=== PATIENT | female | born 1950 | race Caucasian/White ===

== ENCOUNTER 2018-03-15 17:15 | Outpatient (REF) | payer MEDICARE, MEDICAID, SELFPAY ==
[2018-03-15 21:22] LABS: Anion Gap 11.1 mmol/L (3-11); BUN 17 mg/dL (7-18); CO2 29.9 mmol/L (21.0-32.0); CREATININE 1.08 mg/dL (0.55-1.02); Calcium 9.7 mg/dL (8.5-10.1); Chloride 103 mmol/L (98-107); Estimated GFR 50.76 (mL/min/1.73m2); Glucose 81 mg/dL (70-100); Sodium 144 mmol/L (136-145)
[2018-03-15 21:27] LABS: Hemoglobin A1C 5.7 % (4.5-6.2)
== END 2018-03-15 17:35 ==
LOC: NCHCN 17:15
PROVIDERS: PCP Nurse Practitioner Family; Visit Provider Nurse Practitioner Family
DX: N28.9 Disorder of kidney and ureter, unspecified (principal); Z13.1 Encounter for screening for diabetes mellitus; Z13.228 Encounter for screening for other metabolic disorders; Z00.00 Encounter for general adult medical examination without abnormal findings
CPT/HCPCS: 80048; 83036

== ENCOUNTER 2019-09-16 18:03 | Outpatient (REF) | payer MEDICARE, MEDICAID, SELFPAY ==
[2019-09-16 20:04] LABS: Anion Gap 6.8 mmol/L (3-11); BUN 19 mg/dL (7-18); CO2 29.2 mmol/L (21.0-32.0); Calcium 9.1 mg/dL (8.5-10.1); Chloride 108 mmol/L (98-107); Estimated GFR 49.54 (mL/min/1.73m2); Glucose 95 mg/dL (74-106); Potassium 4.1 mmol/L (3.5-5.1); Sodium 144 mmol/L (136-145)
[2019-09-16 20:10] LABS: Hemoglobin A1C 5.9 % (3.8-5.6)
== END 2019-09-16 18:23 ==
LOC: NCHCN 18:03
PROVIDERS: PCP Nurse Practitioner Family; Visit Provider Nurse Practitioner Family
DX: R73.03 Prediabetes (principal); N28.9 Disorder of kidney and ureter, unspecified; R06.09 Other forms of dyspnea
CPT/HCPCS: 80048; 83036

== ENCOUNTER 2024-05-22 11:20 | Inpatient (IN) | payer MEDICARE, MEDICAID, SELFPAY ==
[2024-05-22] VITALS (18 sets, daily range): BP systolic 89–125; BP diastolic 32–78; PULSE 78–108; RESP 3–28; TEMP 36–38.4; O2SAT 18–96
--- NOTE | 2024-05-22 11:30 | DI.RAD_ITS ---
Exam(s) XR PORTABLE CHEST AP EXAM: XR PORTABLE CHEST AP CLINICAL HISTORY: Junky cough, fever, hypoxia. TECHNIQUE: 2D digital imaging was performed. COMPARISON: No exams were available for comparison FINDINGS: Single AP portable view. Study limited by body habitus Heart size is upper normal. The mediastinum is not widened. Left lung appears clear. There is probable infiltrate in the medial right lung base. No pleural eff usions. No pulmonary edema. IMPRESSION: As above. Probable right lower lobe infiltrate. Recommend nonportable PA and lateral views when cli nically possible or alternatively CT scan DATA REPOSITORY: RADIATION DOSE DELIVERED:
--- NOTE | 2024-05-22 11:53 | W.ED.GENAD ---
Discharge Plan Disposition Patient Disposition: Admit to [facility] Condition: Stable Discharge Details Chief Complaint: SOB Clinical Impression: Influenza A, RLL pneumonia, Sepsis Primary Care Provider: Ashley Denson ED Provider: Bhavna Tanner Home Meds and New Rx's Prescriptions: No Action pramipexole 0.25 mg tablet 0.25 mg PO DAILY fluoxetine 10 mg capsule 30 mg PO DAILY buspirone 30 mg tablet 30 mg PO BID risperidone [Risperdal] 1 mg tablet 1 mg PO QHS rivastigmine [Exelon Patch] 4.6 mg/24 hour patch 24 hour 4.6 mg transdermal DAILY calcium carbonate-vitamin D3 500 mg-5 mcg (200 unit) tablet 2 tab PO DAILY omega 9-dod-bkm-fish oil [Fish Oil] 300-1,000 mg capsule,delayed release(DR/EC) 1 cap PO DAILY simvastatin 40 mg tablet 40 mg PO DAILY albuterol 90 mcg/actuation aerosol 90 mcg inhalation DIRECTED Rx Instructions: 2 puffs HPI General Mode of arrival: ambulatory. Date/Time Provider Initiated Documentation: 05/22/24 11:35. Limitations to Documentation: no limitations. Information obtained by: patient, family and old records reviewed. HPI Narrative: HPI: This is a 74-year-old female patient with a past medical history significant for cognitive impairment, resides with a care provider, presenting for evaluation of 2 days of fever, cough, and shortness of breath. The patient reports no personal history of asthma or COPD, has a history of PATSY but has not needed to wear her CPAP in some time. She has had a very junky sounding cough and is having difficulty mobilizing her secretions. She has tried humidified air at home. She does not wear oxygen at home environment. She is not experiencing pain, has been able to eat and drink. Exam: Gen: Awake and alert, in no apparent distress HEENT: Non-icteric sclera Neck: Supple Lungs: The patient has diffuse rhonchi throughout lung michel, audible junky cough during this provider's examination. Tachypnea appreciated CV: Appears well perfused, heart with tachycardic rate but regular rhythm, strong distal pulses Abdomen: Non-distended, soft, nontender MSK: Moves 4 extremities without apparent limitation in ROM. No peripheral edema, no unilateral leg swelling or tenderness Skin: Visualized skin without rashes, cyanosis. Neuro: Normal Gait, no obvious focal deficits or facial asymmetry. Speaks in full, clear sentences. Psych: Appropriate for situation. MDM: This is a 74-year-old female patient presenting for evaluation of shortness of breath, cough, and fever. On arrival to our emergency department the patient is noted to be hypoxic to 85%, placed on 2 L of oxygen by nasal cannula to good effect. Tachycardic and tachypneic, my differential includes but is not limited to viral upper respiratory infection, pneumonia, bronchitis, sepsis. Considered metabolic and electrolyte derangement. No wheezing or history of reactive airway disease to suggest exacerbation, no history of heart failure or evidence of fluid overload on physical examination to suggest pulmonary edema or pleural effusion. The patient's history and physical are less concerning for pulmonary embolism and she has no history of thromboembolic disease. Will obtain laboratory studies to include CBC, CMP, magnesium, troponin, BNP, Fluvid, lactate, and blood cultures. I will obtain a portable chest x-ray, and provide the patient with Tylenol for her low-grade fever. ED Course: I independently interpreted the laboratory studies, which show no significant leukocytosis, anemia, or thrombocytopenia. The chemistry panel is without evidence of electrolyte abnormality, kidney dysfunction, or liver injury. Lactate 2.0, troponin and BNP are low, viral testing positive for influenza A. I independently interpreted the patient's chest x-ray, which does show AN opacity in the right lower lobe concerning for pneumonia in this clinical context. Provided the patient was a liter of IV fluids after her blood pressure decreased to 89/52. Provided the patient with ceftriaxone and azithromycin for antibiosis for her pneumonia. Patient remains on 2 L/min of supplemental O2, reached out to the hospitalist who is graciously accepted this patient for admission. I did send for jeffery influenza subtyping, patient has no exposure to known bird flu cases or domestic or wild birds, and I do not feel that this patient warrants contacting the health department at this time. Hospitalist made aware. Given the duration of symptoms (4 days) Tamiflu was not empirically initiated. Transferred to the hospitalist service without incident. Patient remained hemodynamically appropriate while under my care. Bhavna Tanner MD Related Data Home Medications ?Medication ?Instructions ?Recorded ?Confirmed albuterol 90 mcg/actuation aerosol 90 mcg inhalation DIRECTED 05/22/24 05/22/24 inhaler buspirone 30 mg tablet 30 mg PO BID 05/22/24 05/22/24 calcium 500 mg (as 2 tab PO DAILY 05/22/24 05/22/24 carbonate)-vitamin D3 5 mcg (200 unit) tablet fluoxetine 10 mg capsule 30 mg PO DAILY 05/22/24 05/22/24 omega 5-nsm-pvk-fish oil 300 1 cap PO DAILY 05/22/24 05/22/24 mg-1,000 mg capsule,delayed release (Fish Oil) pramipexole 0.25 mg tablet 0.25 mg PO DAILY 05/22/24 05/22/24 risperidone 1 mg tablet (Risperdal) 1 mg PO QHS 05/22/24 05/22/24 rivastigmine 4.6 mg/24 hour 4.6 mg transdermal DAILY 05/22/24 05/22/24 transdermal patch (Exelon Patch) simvastatin 40 mg tablet 40 mg PO DAILY 05/22/24 05/22/24 Allergies Allergy/AdvReac Type Severity Reaction Status Date / Time ethinyl estradiol (From AdvReac Unknown Unknown Verified 05/22/24 11:51 Seasonale (91)) levonorgestrel (From AdvReac Unknown Unknown Verified 05/22/24 11:51 Seasonale (91)) morphine AdvReac Unknown Unknown Verified 05/22/24 11:51 lorazepam AdvReac Unknown Verified 05/22/24 11:51 General Stated Complaint: SOB MATEUSZ: 2 Course Vital Signs Vital signs: Vital Signs Temperature 38.4 C H 05/22/24 11:38 Pulse 108 H 05/22/24 11:38 Respiratory Rate H 05/22/24 11:38 Blood Pressure 104/50 L 05/22/24 11:38 Pulse Oximetry 85 L 05/22/24 11:38 Temperature 38.4 C H 05/22/24 11:38 Temperature Source Temporal Artery Scan 05/22/24 11:38 Pulse 108 H 05/22/24 11:38 Respiratory Rate 26 H 05/22/24 11:38 Blood Pressure 104/50 L 05/22/24 11:38 Pulse Oximetry 85 L 05/22/24 11:38 Oxygen Delivery Method Room Air 05/22/24 11:38 Oxygen Flow Rate 0 05/22/24 11:38 Pain Level 0 05/22/24 11:38 Lab/Test Results Lab/Test Results: 05/22/24 11:45 Blood Blood Culture - Pending 05/22/24 11:45 Blood Blood Culture - Pending Medical Decision Making Quality:SDOH Health Related Social Needs: No Data to Display PFSH All Active Problems (Updated 05/22/24 @ 12:57 by Bhavna Tanner MD) Sepsis (Acute) RLL pneumonia (Acute) Influenza A (Acute) Social History Smoking/Tobacco Use Status: Never Smoking risk assessment performed?: Yes Alcohol Intake: never Substance use type: does not use
[2024-05-22 12:07] LABS: Abs Immature Grans 0.03 10^3/uL (0.0-0.06); Absolute Basophil Count 0.03 10^3/uL (0.0-0.2); Absolute Eosinophil Count 0.05 10^3/uL (0.0-0.7); Absolute Lymphocyte Count 0.88 10^3/uL (1.2-3.4); Absolute Monocyte Count 0.83 10^3/uL (0.1-0.8); Absolute Neutrophil Count 7.59 10^3/uL (1.2-6.7); Basophils % 0.3 %; Eosinophils % 0.5 %; HCT 37.3 % (36.0-46.0); HGB 12.3 g/dL (11.2-15.7); Immature Grans % 0.3 %; Lymphocytes % 9.4 %; MCH 32.5 pg (27.0-33.0); MCV 98 fL (80-95); MPV 10.7 fL (8.0-11.0); Monocytes % 8.8 %; Neutrophils % 80.7 %; Platelet Count 184 10^3/uL (130-400); RBC 3.79 10^6/uL (3.93-5.22); RDW 15.4 % (11.7-14.6); RDW-SD 55.5 fL; WBC 9.41 10^3/uL (4.4-10.8)
[2024-05-22] MEDS: ACETAMINOPHEN 1,000 MG/100 ML BAG 400 MG IVPB (12:30)
[2024-05-22 12:33] LABS: ALT 42 U/L (14-59); AST 28 U/L (15-37); Albumin 3.2 g/dL (3.4-5.0); Alkaline Phosphatase 94 U/L (46-116); Anion Gap 3.8 mmol/L (3-11); BUN 12 mg/dL (7-18); Bilirubin, Total 0.54 mg/dL (0.2-1.0); CO2 32.2 mmol/L (21.0-32.0); CREATININE 1.2 mg/dL (0.55-1.02); Chloride 99 mmol/L (98-107); Estimated GFR 48.09 (mL/min/1.73m2); Glucose 142 mg/dL (74-106); Magnesium 1.8 mg/dL (1.8-2.4); NT-proBNP 19 pg/mL (<300); Potassium 4.1 mmol/L (3.5-5.1); Sodium 135 mmol/L (136-145); Total Protein 7.6 g/dL (6.4-8.2); Troponin I 7 ng/L (<or=51)
[2024-05-22 12:43] LABS: COVID-19 PCR Negative (Negative); Influenza A PCR Positive (Negative); Influenza B PCR Negative (Negative); RSV PCR Negative (Negative)
[2024-05-22] MEDS: AZITHROMYCIN 500 MG in Normal Saline 250 ML 250 MG IVPB (12:45)
[2024-05-22] MEDS: cefTRIAXone 1 GM/50 ML BAG IVPB (12:45)
[2024-05-22] MEDS: Lactated Ringers 1,000 ML 1000 ML IV (12:45)
[2024-05-22 12:51] LABS: Source Nasopharynx
--- NOTE | 2024-05-22 14:06 | W.PC.ACHO ---
Registration Status: Primary Language: Preferred Language: ED Information & Data Chief Complaint SOB 05/22/24 11:57 Other Complaint RespSymp 05/22/24 11:38 Triage Note Pt has had a cough/fever for 05/22/24 11:38 3 days. Reported has had a cough, but trouble getting this up. Lives with service provider, is here with her. Has not received ibuprofen or tylenol. Most Recent Vital Signs Temperature 38.4 C H 05/22/24 11:38 Temperature Source Temporal Artery Scan 05/22/24 11:38 Pulse 97 H 05/22/24 13:30 Respiratory Rate 18 05/22/24 13:06 Respiratory Effort Short of Breath 05/22/24 13:06 Respiratory Depth Normal 05/22/24 13:06 Respiratory Pattern Normal 05/22/24 13:06 Blood Pressure 97/62 L 05/22/24 13:30 Blood Pressure Mean 71 05/22/24 13:30 Pulse Oximetry 92 05/22/24 13:01 Oxygen Delivery Method Room Air 05/22/24 11:38 Oxygen Flow Rate 0 05/22/24 11:38 Pain Level 0 05/22/24 11:38 Allergies ethinyl estradiol (From ()) Adverse Reaction (Unknown, Verified 05/22/24 11:51) Unknown levonorgestrel (From ()) Adverse Reaction (Unknown, Verified 05/22/24 11:51) Unknown morphine Adverse Reaction (Unknown, Verified 05/22/24 11:51) Unknown lorazepam Adverse Reaction (Verified 05/22/24 11:51) Unknown Precautions Isolation Droplet precaution 05/22/24 11:43 IV IV Catheter Type [Left Saline Lock Antecubital] IV Catheter Type [Right Peripheral IV Antecubital] IV Catheter Gauge [Left 18 Antecubital] IV Catheter Gauge [Right 18 Antecubital] Diagnostics 05/22/24 05/22/24 05/22/24 Range/Units 14:42 12:42 12:06 WBC (4.4-10.8) 10^3/uL RBC (3.93-5.22) 10^6/uL Hgb (11.2-15.7) g/dL Hct (36.0-46.0) % MCV (80-95) fL MCH (27.0-33.0) pg MCHC (32.0-36.0) % RDW (11.7-14.6) % Plt Count (130-400) 10^3/uL MPV (8.0-11.0) fL Immature Gran % % Neutrophils % % Lymphocytes % % Monocytes % % Eosinophils % % Basophils % % Nucleated RBC % (0.0-0.3) % Absolute Neutrophils (1.2-6.7) 10^3/uL Absolute Lymphocytes (1.2-3.4) 10^3/uL Absolute Monocytes (0.1-0.8) 10^3/uL Absolute Eosinophils (0.0-0.7) 10^3/uL Absolute Basophils (0.0-0.2) 10^3/uL VBG Lactate (<or=2.0) mmol/L Sodium (136-145) mmol/L Potassium (3.5-5.1) mmol/L Chloride (98-107) mmol/L Carbon Dioxide (21.0-32.0) mmol/L Anion Gap (3-11) mmol/L BUN (7-18) mg/dL Creatinine (0.55-1.02) mg/dL Est GFR (CKD-EPI 2020) (mL/min/1.73m2) Glucose (74-106) mg/dL Calcium (8.5-10.1) mg/dL Magnesium (1.8-2.4) mg/dL Total Bilirubin (0.2-1.0) mg/dL AST (15-37) U/L ALT (14-59) U/L Alkaline Phosphatase (46-116) U/L Troponin I Cancelled Cancelled (<or=51) ng/L NT-Pro-B Natriuret Pep (<300) pg/mL Total Protein (6.4-8.2) g/dL Albumin (3.4-5.0) g/dL COVID-19 Source SARS-CoV-2 (PCR) (Negative) Influ A Subtyping (PCR) Pending Influenza Type A (PCR) (Negative) Influenza Type B (PCR) (Negative) RSV (PCR) (Negative) 05/22/24 05/22/24 Range/Units 11:55 11:45 WBC 9.41 (4.4-10.8) 10^3/uL RBC 3.79 L (3.93-5.22) 10^6/uL Hgb 12.3 (11.2-15.7) g/dL Hct 37.3 (36.0-46.0) % MCV 98 H (80-95) fL MCH 32.5 (27.0-33.0) pg MCHC 33.0 (32.0-36.0) % RDW 15.4 H (11.7-14.6) % Plt Count 184 (130-400) 10^3/uL MPV 10.7 (8.0-11.0) fL Immature Gran % 0.3 % Neutrophils % 80.7 % Lymphocytes % 9.4 % Monocytes % 8.8 % Eosinophils % 0.5 % Basophils % 0.3 % Nucleated RBC % 0.0 (0.0-0.3) % Absolute Neutrophils 7.59 H (1.2-6.7) 10^3/uL Absolute Lymphocytes 0.88 L (1.2-3.4) 10^3/uL Absolute Monocytes 0.83 H (0.1-0.8) 10^3/uL Absolute Eosinophils 0.05 (0.0-0.7) 10^3/uL Absolute Basophils 0.03 (0.0-0.2) 10^3/uL VBG Lactate 2.0 (<or=2.0) mmol/L Sodium 135 L (136-145) mmol/L Potassium 4.1 (3.5-5.1) mmol/L Chloride 99 (98-107) mmol/L Carbon Dioxide 32.2 H (21.0-32.0) mmol/L Anion Gap 3.8 (3-11) mmol/L BUN 12 (7-18) mg/dL Creatinine 1.2 H (0.55-1.02) mg/dL Est GFR (CKD-EPI 2020) 48.09 (mL/min/1.73m2) Glucose 142 H (74-106) mg/dL Calcium 9.0 (8.5-10.1) mg/dL Magnesium 1.8 (1.8-2.4) mg/dL Total Bilirubin 0.54 (0.2-1.0) mg/dL AST 28 (15-37) U/L ALT 42 (14-59) U/L Alkaline Phosphatase 94 (46-116) U/L Troponin I 7 (<or=51) ng/L NT-Pro-B Natriuret Pep 19 (<300) pg/mL Total Protein 7.6 (6.4-8.2) g/dL Albumin 3.2 L (3.4-5.0) g/dL COVID-19 Source Nasopharynx SARS-CoV-2 (PCR) Negative (Negative) Influ A Subtyping (PCR) Influenza Type A (PCR) Positive A (Negative) Influenza Type B (PCR) Negative (Negative) RSV (PCR) Negative (Negative) 05/22/24 12:09 Blood Culture - Pending Blood 05/22/24 11:55 Blood Culture - Pending Blood Intake and Output - 24 Hour Total 05/22/24 11:20 thru 05/22/24 13:55 Intake Total 420 Balance 420 Weight 72.575 kg Intake: IV 420 Falls Risk Assessment History of Falls No History 05/22/24 13:06 Fall Total Score 0 05/22/24 13:06 Level of Risk Standard/Low Risk 05/22/24 13:06 v v v v v v v v v Sending and/or Receiving Nurses: Please use comment section below to note any information pertinent to the patient hand-off not included above. Information / Comments: Report received from: Scarlett JOHN
--- NOTE | 2024-05-22 17:11 | HPE_ITS ---
Date of service: 05/22/24 Time of Service: 17:11 Assessment and Plan Assessment and plan (1) RLL pneumonia: Status: Acute Assessment and plan: Rhonchorous cough new oxygen requirement, wean as able Nebs Azithromycin and ceftriaxone IS Acapella BC pending Guaifenesin Benzonatate RT consult (2) Influenza A: Status: Acute Assessment and plan: 4d symptoms no tamiflu History of Present Illness History of Present Illness Chief Complaint: Cough, fever, shortness of breath. Narrative: This is a [age]falk[age]-old female patient with a significant past medical history of cognitive impairment. She resides with a care provider. The patient presents for evaluation following two days of fever, cough, and shortness of breath. She reports that she does not have a personal history of asthma or chronic obstructive pulmonary disease. Although she has a history of obstructive sleep apnea, she has not used her continuous positive airway pressure machine in quite some time. The patient describes her cough as very junky sounding and indicates that she is having difficulty mobilizing her secretions. In an effort to alleviate her symptoms, she has tried using humidified air at home. She does not use oxygen in her home environment. She reports that she is not experiencing any pain and has been able to eat and drink without difficulty. Labs in the ED: WBC 9.41 Hgb 12.3 sodium 135 potassium 4.1 creatinine 1.2 glucose 142 BC pending lactate 2.0 Flu positive Covid negative Chest xray- as read by the radiologist left lung clear, probable right lower lobe infiltrate. Vital signs HR 90s, RR 18 SPO2 92% 2 LPM oxygen nasal cannula (no prior oxygen requirement) BP 100/60 T 38.4 In the ED, received acetaminophen for fever, ceftriaxone and azithromycin IV. Patient was not started on tamiflu having symptoms for four days. Patient is admitted to the medical floor for further testing and treatment. Patient is a full code. Review of Systems All systems reviewed & are unremarkable except as noted in HPI and below PFSH All Active Problems (Updated 05/22/24 @ 12:57 by Bhavna Tanner MD) Sepsis (Acute) RLL pneumonia (Acute) Influenza A (Acute) Social History Smoking/Tobacco Use Status: Never Smoking risk assessment performed?: Yes Alcohol Intake: never Substance use type: does not use Housing: house Meds Allergies and Home Medications Allergies Allergy/AdvReac Type Severity Reaction Status Date / Time ethinyl estradiol (From AdvReac Unknown Unknown Verified 05/22/24 11:51 Seasonale (91)) levonorgestrel (From AdvReac Unknown Unknown Verified 05/22/24 11:51 Seasonale (91)) morphine AdvReac Unknown Unknown Verified 05/22/24 11:51 lorazepam AdvReac Unknown Verified 05/22/24 11:51 Home Medications ?Medication ?Instructions ?Recorded ?Confirmed ?Type albuterol 90 mcg/actuation aerosol 90 mcg inhalation DIRECTED 05/22/24 05/22/24 History inhaler buspirone 30 mg tablet 30 mg PO BID 05/22/24 05/22/24 History calcium 500 mg (as 2 tab PO DAILY 05/22/24 05/22/24 History carbonate)-vitamin D3 5 mcg (200 unit) tablet fluoxetine 10 mg capsule 30 mg PO DAILY 05/22/24 05/22/24 History omega 9-mpa-hpl-fish oil 300 1 cap PO DAILY 05/22/24 05/22/24 History mg-1,000 mg capsule,delayed release (Fish Oil) pramipexole 0.25 mg tablet 0.25 mg PO DAILY 05/22/24 05/22/24 History risperidone 1 mg tablet (Risperdal) 1 mg PO QHS 05/22/24 05/22/24 History rivastigmine 4.6 mg/24 hour 4.6 mg transdermal QPM 05/22/24 05/22/24 History transdermal patch (Exelon Patch) simvastatin 40 mg tablet 40 mg PO DAILY 05/22/24 05/22/24 History Exam Narrative Exam Narrative: Gen: Awake and alert, in no apparent distress HEENT: Non-icteric sclera Neck: Supple Lungs: The patient has diffuse rhonchi throughout lung michel, tachypnea CV: Appears well perfused, heart with tachycardic rate but regular rhythm, strong distal pulses Abdomen: Non-distended, soft, nontender MSK: Moves 4 extremities without apparent limitation in ROM. No peripheral edema, no unilateral leg swelling or tenderness Skin: Visualized skin without rashes, cyanosis. Neuro: Normal Gait, no obvious focal deficits or facial asymmetry. Speaks in full, clear sentences. Psych: Appropriate for situation. Results Labs 05/22/24 11:55 05/22/24 11:55 Labs: Laboratory Results - last 24 hr 05/22/24 05/22/24 05/22/24 11:45 11:55 12:42 WBC 9.41 RBC 3.79 L Hgb 12.3 Hct 37.3 MCV 98 H MCH 32.5 MCHC 33.0 RDW 15.4 H Plt Count 184 MPV 10.7 Immature Gran % 0.3 Neutrophils % 80.7 Lymphocytes % 9.4 Monocytes % 8.8 Eosinophils % 0.5 Basophils % 0.3 Nucleated RBC % 0.0 Absolute Neutrophils 7.59 H Absolute Lymphocytes 0.88 L Absolute Monocytes 0.83 H Absolute Eosinophils 0.05 Absolute Basophils 0.03 VBG Lactate 2.0 Sodium 135 L Potassium 4.1 Chloride 99 Carbon Dioxide 32.2 H Anion Gap 3.8 BUN 12 Creatinine 1.2 H Est GFR (CKD-EPI 2020) 48.09 Glucose 142 H Calcium 9.0 Magnesium 1.8 Total Bilirubin 0.54 AST 28 ALT 42 Alkaline Phosphatase 94 Troponin I 7 Cancelled NT-Pro-B Natriuret Pep 19 Total Protein 7.6 Albumin 3.2 L COVID-19 Source Nasopharynx SARS-CoV-2 (PCR) Negative Influenza Type A (PCR) Positive A Influenza Type B (PCR) Negative RSV (PCR) Negative 05/22/24 14:42 WBC RBC Hgb Hct MCV MCH MCHC RDW Plt Count MPV Immature Gran % Neutrophils % Lymphocytes % Monocytes % Eosinophils % Basophils % Nucleated RBC % Absolute Neutrophils Absolute Lymphocytes Absolute Monocytes Absolute Eosinophils Absolute Basophils VBG Lactate Sodium Potassium Chloride Carbon Dioxide Anion Gap BUN Creatinine Est GFR (CKD-EPI 2020) Glucose Calcium Magnesium Total Bilirubin AST ALT Alkaline Phosphatase Troponin I Cancelled NT-Pro-B Natriuret Pep Total Protein Albumin COVID-19 Source SARS-CoV-2 (PCR) Influenza Type A (PCR) Influenza Type B (PCR) RSV (PCR) Last Vital Signs Temp 37 C 05/22/24 14:32 Pulse 86 05/22/24 14:32 Resp 20 05/22/24 14:32 BP 103/66 05/22/24 14:32 Pulse Ox 85 L 05/22/24 15:35 Time Spent Time spent with Patient: 40-54 minutes Time was spent: preparing to see the patient(eg.review tests), obtaining and/or reviewing separately otained hiistory, ordering medications,tests, procedures, referring, communicating with other health critical care specialist, indepentently interpreting results, counseling the patient and care coordination
[2024-05-22] MEDS: Albuterol/Ipratropium 3 ML UPD VIAL UPD ×2 (18:15→21:52)
[2024-05-22] MEDS: Normal Saline 1,000 ML 100 ML IV (18:27)
[2024-05-22 19:03] LABS: Procalcitonin < 0.10 ng/mL
[2024-05-22 19:29] LABS: Lab Add On Test DONE
[2024-05-22] MEDS: Normal Saline Flush 10 ML SYR IVP (20:41)
[2024-05-22] MEDS: guaiFENesin 600 MG TABCR PO (20:42)
[2024-05-22] MEDS: Enoxaparin 40 MG/0.4 ML SYR SC (20:42)
[2024-05-22] MEDS: Simvastatin 40 MG TAB PO (20:42)
[2024-05-22] MEDS: busPIRone 15 MG TAB 30 MG PO (20:42)
[2024-05-22] MEDS: risperiDONE 1 MG TAB PO (20:42)
[2024-05-23] VITALS (12 sets, daily range): BP systolic 103–136; BP diastolic 60–85; PULSE 83–98; RESP 3–22; TEMP 36.2–37.2; O2SAT 90–96
[2024-05-23] MEDS: Albuterol/Ipratropium 3 ML UPD VIAL UPD ×3 (03:50→22:37)
[2024-05-23 06:32] LABS: Abs Immature Grans 0.03 10^3/uL (0.0-0.06); Absolute Basophil Count 0.03 10^3/uL (0.0-0.2); Absolute Eosinophil Count 0.19 10^3/uL (0.0-0.7); Absolute Lymphocyte Count 1.45 10^3/uL (1.2-3.4); Absolute Neutrophil Count 5.06 10^3/uL (1.2-6.7); Basophils % 0.4 %; Eosinophils % 2.6 %; HCT 30.8 % (36.0-46.0); HGB 10.1 g/dL (11.2-15.7); Immature Grans % 0.4 %; Lymphocytes % 19.7 %; MCH 32.4 pg (27.0-33.0); MCHC 32.8 % (32.0-36.0); MCV 99 fL (80-95); MPV 11.1 fL (8.0-11.0); Monocytes % 8.2 %; Neutrophils % 68.7 %; Platelet Count 155 10^3/uL (130-400); RBC 3.12 10^6/uL (3.93-5.22); RDW 15.3 % (11.7-14.6); RDW-SD 55.4 fL; WBC 7.36 10^3/uL (4.4-10.8)
[2024-05-23 06:59] LABS: Anion Gap 3.9 mmol/L (3-11); BUN 8 mg/dL (7-18); CO2 30.1 mmol/L (21.0-32.0); Calcium 8.4 mg/dL (8.5-10.1); Chloride 107 mmol/L (98-107); Estimated GFR 59.86 (mL/min/1.73m2); Glucose 114 mg/dL (74-106); Magnesium 1.9 mg/dL (1.8-2.4); Potassium 3.9 mmol/L (3.5-5.1); Sodium 141 mmol/L (136-145)
--- NOTE | 2024-05-23 08:51 | INITIAL_ITS ---
Date of service: 05/23/24 Time of Service: 08:51 Care Management Initial Assmt Initial Assessment Reason for Hospitalization: Influenza A, pneumonia, Sepsis Functional Status/Living Situation Patient Presentation: Katty was lying in bed when CM met with her. She is wearing supplemental O2, which is not her baseline. Katty is a client if [facility] and is accompanied by her shared living provider Bhavani, and is talkative and reports that she is feeling better than when she first came in. CM provided pt with some of her favorite things, an adult coloring book and a journal. Town of Residence: [facility] Resides with: Other ([employer]PER[employer] Bhavani Spivey) Caregiver/Guardian: Guardian Margoth Bustillo Employment Status: Retired Instrumental Activities of Daily Living (ADLs): Independent Medications Medication Management: No Issues/Barriers identified Physical Functioning/Mobility Assistive Device: Walker Advance Directives Advance Directives: Do you have an Advance Directive: AD On File at [facility]: N 09/03/12 20:27 Date Asked 05/22/24 05/22/24 12:18 AD Date Reviewed COLST On File at [facility] COLST Date Scanned Code Status Resuscitation Status Full Code Portal Pt does not currently have a portal and education provided: Yes Insurance Coverage/Financial Issues Insurance: Medicaid Medicare Care Team Visit Care Team Role Provider Type Kenya So APRN MD [facility] STAFF PHYSICIAN Ashley Denson Primary Care Provider NON-[facility] STAFF PHYSICIAN Bhavna Tanner MD Emergency Provider [facility] STAFF PHYSICIAN Anil West MD Admit Provider [facility] STAFF PHYSICIAN Attending Provider Discharge Potential Discharge Needs: PCP F/U Appt Anticipated Barriers to Discharge: None Identified Patient/Family Education Needs: Review discharge instructions, discuss Ask Me Three Transportation: Private vehicle Plan: Anticipate, Katty will discharge home via private vehicle with her home provider Bhavani. Her Guardian is Anay Bustillo and she should also be notified on discharge. Pt will follow up with her PCP and discharge plan of care as directed. CM will follow. Social Determinants of Health Screening Social Determinants of Health last assessed: 05/23/24 Will the Patient Participate in the Screening?: Declined to provide Do you worry about having a steady place to live?: no Problems where you live: no known problems In the past 12 months, have you had to go without electric, gas, oil or water in your home?: no Have you or anyone in your house had to go without enough food to eat?: no Has lack of transportation kept you from medical appointments or from doing thi ngs needed for daily living?: no Has anyone in your life made you feel unsafe or unsupported?: no How hard is it for you to pay for the very basics like food, housing, medical care, and heating? Would you say it is:: Not hard at all Do you want help finding or keeping work or a job?: I do not need or want help If for any reason you need help with day-to-day activities such as bathing, preparing meals, shopping, managing finances, etc., do you get the help you need?: I don?t need any help How often do you feel lonely or isolated from those around you?: Never Do you speak a language other than Icelandic at home?: No Does the patient want assistance with any of the above?: No PFSH All Active Problems (Updated 05/23/24 @ 16:21 by Kenya So APRN) Depression (Chronic) On deep vein thrombosis (DVT) prophylaxis (Acute) Sepsis (Acute) RLL pneumonia (Acute) Influenza A (Acute) Social History Smoking/Tobacco Use Status: Never Smoking risk assessment performed?: Yes Alcohol Intake: never Substance use type: does not use Housing: house
--- NOTE | 2024-05-23 09:51 | PGE_ITS ---
Date of Service Date of service: 05/23/24 Time of Service: 09:52 Assessment and Plan Assessment and plan (1) RLL pneumonia: Status: Acute Assessment and plan: Rhonchorous cough new oxygen requirement, wean as able Continue nebs treatments Continue Azithromycin and ceftriaxone Continue IS, Acapella Blood cultures are negative x 24 hours but patient is still requiring 1.5 L of oxygen by nasal cannula Continue guaifenesin , Benzonatate Ongoing RT consult Legionella and strep pneumoniae detection pending (2) Influenza A: Status: Acute Assessment and plan: The patient's symptoms started 4 days ago at this time the patient is not a candidate for oseltamivir therapy (3) Depression: Status: Chronic Assessment and plan: Continue home medicine regimen (4) On deep vein thrombosis (DVT) prophylaxis: Status: Acute Assessment and plan: On low molecular weight heparin Discussed with Dr. West Subjective Subjective Patient reports: no new complaints, feels better, tolerating liquids well, voiding w/o difficulty and shortness of breath (imrpoving ); denies diarrhea, nausea, vomiting or fever Exam Narrative Exam Narrative: Alert and oriented x 3, pleasant without acute distress, nonfocal, S1-S2 regular, right upper lung is coarse, diminished bases bilaterally, abdomen nondistended soft nontender, moves all 4 extremities Objective Last Vital Signs Temp 37.2 C 05/23/24 08:39 Pulse 98 H 05/23/24 08:39 Resp 15 05/23/24 08:39 BP 133/76 05/23/24 08:39 Pulse Ox 91 L 05/23/24 08:39 Laboratory Results - last 24 hr 05/22/24 05/22/24 05/22/24 11:45 11:55 12:42 WBC 9.41 RBC 3.79 L Hgb 12.3 Hct 37.3 MCV 98 H MCH 32.5 MCHC 33.0 RDW 15.4 H Plt Count 184 MPV 10.7 Immature Gran % 0.3 Neutrophils % 80.7 Lymphocytes % 9.4 Monocytes % 8.8 Eosinophils % 0.5 Basophils % 0.3 Nucleated RBC % 0.0 Absolute Neutrophils 7.59 H Absolute Lymphocytes 0.88 L Absolute Monocytes 0.83 H Absolute Eosinophils 0.05 Absolute Basophils 0.03 VBG Lactate 2.0 Sodium 135 L Potassium 4.1 Chloride 99 Carbon Dioxide 32.2 H Anion Gap 3.8 BUN 12 Creatinine 1.2 H Est GFR (CKD-EPI 2020) 48.09 Glucose 142 H Calcium 9.0 Magnesium 1.8 Total Bilirubin 0.54 AST 28 ALT 42 Alkaline Phosphatase 94 Troponin I 7 Cancelled NT-Pro-B Natriuret Pep 19 Total Protein 7.6 Albumin 3.2 L Procalcitonin < 0.10 COVID-19 Source Nasopharynx SARS-CoV-2 (PCR) Negative Influenza Type A (PCR) Positive A Influenza Type B (PCR) Negative RSV (PCR) Negative Add-On Test Request DONE 05/22/24 05/23/24 14:42 05:48 WBC 7.36 RBC 3.12 L Hgb 10.1 L D Hct 30.8 L MCV 99 H MCH 32.4 MCHC 32.8 RDW 15.3 H Plt Count 155 MPV 11.1 H Immature Gran % 0.4 Neutrophils % 68.7 Lymphocytes % 19.7 Monocytes % 8.2 Eosinophils % 2.6 Basophils % 0.4 Nucleated RBC % 0.0 Absolute Neutrophils 5.06 Absolute Lymphocytes 1.45 Absolute Monocytes 0.60 Absolute Eosinophils 0.19 Absolute Basophils 0.03 VBG Lactate Sodium 141 Potassium 3.9 Chloride 107 Carbon Dioxide 30.1 Anion Gap 3.9 BUN 8 Creatinine 1.0 Est GFR (CKD-EPI 2020) 59.86 Glucose 114 H Calcium 8.4 L Magnesium 1.9 Total Bilirubin AST ALT Alkaline Phosphatase Troponin I Cancelled NT-Pro-B Natriuret Pep Total Protein Albumin Procalcitonin COVID-19 Source SARS-CoV-2 (PCR) Influenza Type A (PCR) Influenza Type B (PCR) RSV (PCR) Add-On Test Request Time Spent with Patient Time Spent with Patient: >50 minutes Time was spent: preparing to see the patient(eg.review tests), obtaining and/or reviewing separately otained hiistory, ordering medications,tests, procedures, referring, communicating with other health healthcare customer service, indepentently interpreting results, counseling the patient and care coordination
[2024-05-23] MEDS: busPIRone 15 MG TAB 30 MG PO ×2 (09:54→20:43)
[2024-05-23] MEDS: Pramipexole 0.25 MG TAB PO (09:55)
[2024-05-23] MEDS: Calcium 600mg/Vit D 200U TAB 2 TAB PO (09:55)
[2024-05-23] MEDS: Omega-3 Fatty Acids 1000 MG CAP PO (09:55)
[2024-05-23] MEDS: guaiFENesin 600 MG TABCR PO ×2 (09:55→20:46)
[2024-05-23] MEDS: FLUoxetine 10 MG TAB 30 MG PO (09:56)
[2024-05-23] MEDS: Normal Saline Flush 10 ML SYR IVP ×2 (13:03→20:45)
[2024-05-23] MEDS: AZITHROMYCIN 500 MG in Normal Saline 250 ML 250 MG IVPB (13:03)
[2024-05-23] MEDS: cefTRIAXone 1 GM/50 ML BAG IVPB (13:03)
--- NOTE | 2024-05-23 14:18 | PHA.REVIEW2 ---
Pharmacy Admission Review Admission Clinical Review Admission Pharmacy Review: RLL pneumonia (Acute) Influenza A (Acute) ethinyl estradiol (From ()) Adverse Reaction (Unknown, Verified 05/22/24 11:51) Unknown levonorgestrel (From ()) Adverse Reaction (Unknown, Verified 05/22/24 11:51) Unknown morphine Adverse Reaction (Unknown, Verified 05/22/24 11:51) Unknown lorazepam Adverse Reaction (Verified 05/22/24 11:51) Unknown Resuscitation Status Full Code Height 4 ft 9 in Weight 72.575 kg Comments Comments/Follow Ups: Watch VS, SCr, labs, for culture results and for med changes (possible renal dose adjustements). Pharmacy Admission Review Renal Dosing Renal Dosing: BUN 8 mg/dL (7-18) 05/23/24 05:48 Creatinine 1.0 mg/dL (0.55-1.02) 05/23/24 05:48 Medications needing adjustments: Reviewed (Crcl ~40 mL/min current meds are okay ) Anticoagulation Anticoagulation: Hgb 10.1 g/dL (11.2-15.7) L D 05/23/24 05:48 Hct 30.8 % (36.0-46.0) L 05/23/24 05:48 Plt Count 155 10^3/uL (130-400) 05/23/24 05:48 Creatinine 1.0 mg/dL (0.55-1.02) 05/23/24 05:48 DVT Prophylaxis: Reviewed Medications: Enoxaparin Opiate Usage Evaluate Pain Scale/Pains Meds: N/A Relevant Labs Relevant Labs: Sodium 141 mmol/L (136-145) 05/23/24 05:48 Potassium 3.9 mmol/L (3.5-5.1) 05/23/24 05:48 Chloride 107 mmol/L (98-107) 05/23/24 05:48 Magnesium 1.9 mg/dL (1.8-2.4) 05/23/24 05:48 Electrolytes, C-Reactive P, ESR: Reviewed DM Control DM Control: Glucose 114 mg/dL (74-106) H 05/23/24 05:48 DM Control: Reviewed (No DM noted in medical history, previous A1c from 2019) Cardiac Review Cardiac Review: Troponin I Cancelled 05/22/24 14:42 NT-Pro-B Natriuret Pep 19 pg/mL (<300) 05/22/24 11:55 BP, HR, EF%: Reviewed QTc Review QTc: N/A IV to PO Switch IV Medications: Reviewed Home Meds Home Med List reviewed: Reviewed Relevent Home Meds Not ordered & why?: All home meds are currently ordered Current Meds Current Medication Order Review: Intervened (Discontinued duplicate med order) Pharmacy Antibiotic Review Relevant Labs: Relevant Labs 05/22/24 11:55 Procalcitonin < 0.10 Pharmacy Antibiotic Activity: C/S review and Reviewed, no change Comments: Blood cultures no growth @24 hours. Ceftriaxone and azithromycin continue for pneumonia (day 2). Comments Comments/Follow Ups: Watch VS, SCr, labs, for culture results and for med changes (possible renal dose adjustements).
[2024-05-23] MEDS: Normal Saline 1,000 ML 100 ML IV (17:07)
[2024-05-23] MEDS: Enoxaparin 40 MG/0.4 ML SYR SC (20:42)
[2024-05-23] MEDS: risperiDONE 1 MG TAB PO (20:43)
[2024-05-23] MEDS: Simvastatin 40 MG TAB PO (20:44)
[2024-05-23 23:25] LABS: Legionella Ag Detection Urine Negative (Negative)
[2024-05-24] VITALS (7 sets, daily range): BP systolic 108–125; BP diastolic 69–86; PULSE 74–92; RESP 8–16; TEMP 36–36.2; O2SAT 92–96
[2024-05-24] MEDS: Normal Saline 1,000 ML 100 ML IV (03:24)
[2024-05-24 06:30] LABS: Abs Immature Grans 0.06 10^3/uL (0.0-0.06); HCT 33.1 % (36.0-46.0); HGB 10.6 g/dL (11.2-15.7); MCH 32.1 pg (27.0-33.0); MCV 100 fL (80-95); Platelet Count 170 10^3/uL (130-400); RDW 15.7 % (11.7-14.6); RDW-SD 57.4 fL; WBC 7.29 10^3/uL (4.4-10.8)
[2024-05-24 06:43] LABS: Anion Gap 3.1 mmol/L (3-11); BUN 6 mg/dL (7-18); CO2 31.9 mmol/L (21.0-32.0); CREATININE 0.8 mg/dL (0.55-1.02); Chloride 108 mmol/L (98-107); Estimated GFR 78.24 (mL/min/1.73m2); Glucose 99 mg/dL (74-106); Sodium 143 mmol/L (136-145)
[2024-05-24 06:58] LABS: Absolute Eosinophil Count 0.36 10^3/uL (0.0-0.7); Absolute Lymphocyte Count 1.97 10^3/uL (1.2-3.4); Absolute Monocyte Count 0.51 10^3/uL (0.1-0.8); Absolute Neutrophil Count 4.37 10^3/uL (1.2-6.7); Atypical Lymphocytes % 2 %; Metamyelocytes % 1
[2024-05-24 06:59] LABS: Diff Comment Manual Differential; RBC Morphology Normal
[2024-05-24] MEDS: Normal Saline Flush 10 ML SYR IVP ×2 (08:06→12:09)
[2024-05-24] MEDS: Calcium 600mg/Vit D 200U TAB 2 TAB PO (08:07)
[2024-05-24] MEDS: Pramipexole 0.25 MG TAB PO (08:07)
[2024-05-24] MEDS: busPIRone 15 MG TAB 30 MG PO (08:07)
[2024-05-24] MEDS: guaiFENesin 600 MG TABCR PO (08:07)
[2024-05-24] MEDS: FLUoxetine 10 MG TAB 30 MG PO (08:07)
[2024-05-24] MEDS: Omega-3 Fatty Acids 1000 MG CAP PO (08:07)
[2024-05-24] MEDS: Albuterol/Ipratropium 3 ML UPD VIAL UPD (09:30)
--- NOTE | 2024-05-24 10:39 | DSE_ITS ---
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 Symptoms started 4 days prior to presentation. On arrival to the ED the patient was hypoxic at 85% on room air which resolved status post oxygen supplementation of 2 L via nasal cannula. The patient is not O2 dependent at home. The patient was found to be tachycardic, tachypneic febrile and hypotensive. Workup in the ED was significant for the absence of leukocytosis, creatinine at 1.2 from baseline 0.8-1.1, upper respiratory viral panel was positive for influenza A. Chest x-ray showed right lung base infiltrate without pleural effusion. In the ED, IV fluid, ceftriaxone IV and azithromycin IV were initiated. The patient continued to require oxygen supplementation and was admitted to the hospitalist service to the medical surgical floor for evaluation and management of currently severe sepsis due to community acquired pneumonia in the setting of positive influenza A infection, hypoxic respiratory failure, increased creatinine. During the stay the patient continued to receive antibiotics, IV fluid hydration with improvement of the creatinine. The patient received continue to receive nebulizer treatments and oxygen was weaned down to room air for saturation 91- 93%; saturation improved to 95% when patient practicing Acapella and incentive parameter, taking deep breath and coughing. No treatment for influenza was given due to to symptomatology starting 4 days prior to diagnosis. The patient will be discharged home with home health physical therapy as per inpatient physical therapy recommendations. The patient will be discharged home with home health physical therapy to finish her course of antibiotic, probiotics as well as Mucinex and benzonatate. An attempt was made to reach out to the guardian name Margoth Bustillo; but record of a guardian name Brooks Carver at phone #[phone] listed on the person to notify in electronic chart; no response obtained during phone call/phone not in service. Call made to Nicolette Santiago as next of kin at [phone] extension [phone] which is [facility] services number and voicemail left. Under the HIPAA form filled during this admission the guardian was not listed. At the time made to reach her guardian were unsuccessful. The patient will need follow-up with the primary care practitioner with follow- up on sleep study referral for PATSY; it seems that the last study was made in 2017. Home Meds and New Rx's Prescriptions: New benzonatate 100 mg Capsule 100 mg PO TID PRN PRN (Reason: Cough) Qty: 90 0RF guaifenesin [Mucus Relief ER] 600 mg Tablet Extended Release 12hr 600 mg PO BID Qty: 60 0RF cefpodoxime 200 mg tablet 200 mg PO BID Qty: 6 0RF Rx Instructions: must administer with a meal/food Bio-K plus 50 billion cell capsule,delayed release(DR/EC) 1 cap PO DAILY Qty: 7 0RF Rx Instructions: Take 3 hours apart from antibiotics azithromycin 500 mg tablet See Rx Instructions .ROUTE .COMPLEX Qty: 3 0RF Rx Instructions: For 500 mg dose pack: take 500 mg once daily for 3 days Continued pramipexole 0.25 mg tablet 0.25 mg PO DAILY fluoxetine 10 mg capsule 30 mg PO DAILY buspirone 30 mg tablet 30 mg PO BID risperidone [Risperdal] 1 mg tablet 1 mg PO QHS rivastigmine [Exelon Patch] 4.6 mg/24 hour patch 24 hour 4.6 mg transdermal QPM calcium carbonate-vitamin D3 500 mg-5 mcg (200 unit) tablet 2 tab PO DAILY omega 3-xqz-hcf-fish oil [Fish Oil] 300-1,000 mg capsule,delayed release(DR/EC) 1 cap PO DAILY simvastatin 40 mg tablet 40 mg PO DAILY albuterol 90 mcg/actuation aerosol 90 mcg inhalation DIRECTED Rx Instructions: 2 puffs Discharge Instructions Instructions: Flu in adults - Discharge instructions Stand Alone Forms: Nursing Discharge Form Referrals: Ashley Denson [Primary Care Provider] - (Please call PCP office on Sunday to make a follow up appointment.) SLEEP CLINIC,[facility] [OTHER] - (Hx of PATSY, not on CPAP currently) Activity:: Activity as Tolerated Equipment/Supplies:: Walker Diet:: As Tolerated DS: Summary Time Spent with Patient providing and/or coordinating discharge services: Greater than 30 minutes Status at Discharge Functional status at discharge: uses cane/walker Overall status at discharge: patient is progressing back to baseline Mental Status: mental status grossly normal Speech and Movement: speech and movement normal Mood: congruent mood Affect: normal affect Quality:SDOH Health Related Social Needs: No Data to Display Exam Narrative Exam Narrative: Alert and oriented x 3, pleasant without acute distress, nonfocal, S1-S2 regular, right upper lung is coarse, diminished right base, abdomen nondistended soft nontender, moves all 4 extremities Psych Mental Status: mental status grossly normal Speech and Movement: speech and movement normal Mood: congruent mood Affect: normal affect DS: Data Vitals/I&O Vitals and I&O: Vital Signs Temperature 36.1 C L 05/24/24 08:21 Temperature Source Temporal Artery Scan 05/24/24 08:21 Pulse 86 05/24/24 09:36 Respiratory Rate 16 05/24/24 08:21 Respiratory Effort Short of Breath 05/22/24 13:06 Respiratory Depth Normal 05/22/24 13:06 Respiratory Pattern Normal 05/22/24 13:06 Blood Pressure 119/76 05/24/24 08:21 Blood Pressure Mean 71 05/22/24 13:30 Pulse Oximetry 96 05/24/24 09:30 Oxygen Delivery Method Nasal Cannula 05/24/24 09:30 Oxygen Flow Rate 1.5 05/24/24 09:30 Fraction of Inspired Oxygen (FIO2) 90 05/22/24 21:52 Pain Level 0 05/24/24 08:53 Intake & Output 05/23/24 05/23/24 05/24/24 11:59 23:59 11:59 Intake Total 360 / 1680 1320 / 1680 1210 / 1210 Output Total 700 / 700 500 / 500 Balance -340 / 980 1320 / 980 710 / 710 Intake: IV 0 / 1320 1320 / 1320 1010 / 1010 Oral 360 / 360 200 / 200 Output: Urine 400 / 400 500 / 500 Stool 300 / 300 Other: Urine Color Pale Yellow Yellow Urine Appearance Clear Clear Urine Odor Normal Normal Comment large amount, mixed with stool - unmeasurable. Stool Size Moderate Small Moderate Stool Characteristics Liquid Soft Soft Brown Formed Formed Brown Brown Data Completed and Pending Labs on day of discharge: Labs from last 24 hours 05/24/24 06:08 WBC 7.29 RBC 3.30 L Hgb 10.6 L Hct 33.1 L MCV 100 H MCH 32.1 MCHC 32.0 RDW 15.7 H Plt Count 170 MPV 11.0 Immature Gran % 0.0 Neutrophils % 60.0 Lymphocytes % 25.0 Atypical Lymphs % 2 Monocytes % 7.0 Eosinophils % 5.0 Basophils % 0.0 Metamyelocytes % 1 Nucleated RBC % 0.0 Absolute Neutrophils 4.37 Absolute Lymphocytes 1.97 Absolute Monocytes 0.51 Absolute Eosinophils 0.36 Absolute Basophils 0.00 RBC Morphology Normal Sodium 143 Potassium 4.0 Chloride 108 H Carbon Dioxide 31.9 Anion Gap 3.1 BUN 6 L Creatinine 0.8 Est GFR (CKD-EPI 2020) 78.24 Glucose 99 Calcium 9.0 Preliminary micro results at discharge 05/22/24 12:09 Blood Culture - Preliminary Blood NO GROWTH 24 HOURS 05/22/24 11:55 Blood Culture - Preliminary Blood NO GROWTH 24 HOURS PFSH All Active Problems (Updated 05/23/24 @ 16:21 by Kenya So APRN) Depression (Chronic) On deep vein thrombosis (DVT) prophylaxis (Acute) Sepsis (Acute) RLL pneumonia (Acute) Influenza A (Acute) Social History Smoking/Tobacco Use Status: Never Smoking risk assessment performed?: Yes Alcohol Intake: never Substance use type: does not use Housing: house Time Spent with Patient Time Spent with Patient: 70-84 minutes4 Time was spent: preparing to see the patient(eg.review tests), obtaining and/or reviewing separately otained hiistory, ordering medications,tests, procedures, referring, communicating with other health animal care attendant, indepentently interpreting results, counseling the patient and care coordination
--- NOTE | 2024-05-24 11:49 | IN_ITS ---
PT Notes Visit Reasons: Influenza A, right lower lobe pneumonia Inpatient Physical Therapy Evaluation Date: 05/24/24 Referring Doctor: Kenya So NP PT Orders: PT CONSULT: safety consult for discharge Precautions: fall, standard Patient Profile/Admitting Diagnosis: Katty has been admitted to acute care for medical management of Influenza A, pneumonia, Sepsis. PT consult requested for discharge planning. Social History/Home Situation: Katty resides in a private home with her caregiver, per CM notes. Katty reports that her caregiver assists her with showering and meals, but that she is able to dress herself, get in and out of bed, and use the bathroom on her own. She has a walker at home, which she uses sometimes. Equipment Owned/DME: [facility] Subjective: Katty states that she is feeling well. She denies feeling fatigued or weak. Objective: General Observation: Resting in chair with nursing present at initiation of session. Supplemental O2. No additional lines. Mental Status: A&O. Poor historian. Pain: denies Vital Signs: SaO2 91% at rest, on supplemental O2. She desats to 88% during strength assessment, but otherwise remains between 90-94% throughout session. ROM: Right Upper Extremity: Shoulder flexion 100* bilat. Otherwise WFL. Left Upper Extremity: Shoulder flexion 100* bilat. Otherwise WFL. Right Lower Extremity: WFL Left Lower Extremity: WFL Strength: Right Upper Extremity: Shoulder flexion 3-/5. Difficulty assessing resisted strength due to limited ability to follow commands. Grossly 3/5 for all UE motions. Left Upper Extremity: Shoulder flexion 3-/5. Difficulty assessing resisted strength due to limited ability to follow commands. Grossly 3/5 for all UE motions. Right Lower Extremity: LE motions grossly 3/5. Difficulty assessing resisted strength due to limited ability to follow commands. Left Lower Extremity: LE motions grossly 3/5. Difficulty assessing resisted strength due to limited ability to follow commands. Bed Mobility/Transfers: supine-sit: mod A at the trunk sit-supine: independent sit-stand: supervision stand-sit: supervision, with cues for technique and limited carryover Gait: Ambulates 10'x6 in treatment room, with FWW and CGA. Requires cues for turning and equipment management. No LOB. Balance: Static Sitting: normal Dynamic Sitting: good Static Standing: fair Dynamic Standing: fair Special Tests: Mobility Limitations Standardized Measure [facility] AM-PAC 6 clicks Basic Mobility Inpatient Short Form: Raw Score: 19 Standardized Score: 45.44 CMS Score: 42% impairment Informed Consent/Education: Patient instructed in purpose of PT consult and plan of care. Treatment: Initial Evaluation (90231) Therapeutic Exercises (21121): sit-stand 5x with cues for safety and technique in-room ambulation for improved activity tolerance, with close monitoring of oxygen saturation. Does not demonstrate desaturation while on supplemental O2, and no DELANEY during completion seated ankle pumps 10x seated shoulder flexion 10x small LE standing with UE support to FWW, 30 seconds partial tandem stance with UE support to FWW, 30 seconds Assessment: Patient is a 74 year old female referred to physical therapy services for safety consultation for discharge planning. She was seen in the acute care setting, where she is being managed for influenza A, pneumonia and s epsis. Patient presents with clinical signs and symptoms consistent with diagnosis, and appears to be moving at baseline level of function. She currently resides with a caregiver, and is appropriate for discharge back to her care once medically stable. Requires HH PT for cardiovascular retraining following acute medical issues for improved activity tolerance and fall risk reduction. She currently demonstrates the following impairment level findings: 1. decreased activity tolerance 2. mod A supine-sit Impairments are contributing to the following functional limitations: 1. decreased tolerance to household distance ambulation 2. requiring assistance for transfer out of bed Patient is assessed as a Low 36464 complexity based on the following: History: as above Examination: as above Presentation: stable Decision Making: low complexity Plan of Care/Treatment Plan: 1-2x/day, 7 days/week x 1 week. Plan of care has been reviewed with the ZMT OPERATOR providing the service under Physical Therapy direction. Initiate Physical Therapy intervention for strengthening, bed mobility, transfers, gait, stairs, balance training, use of assistive device. DISCHARGE RECOMMENDATIONS: Home with HH PT TREATMENT CODE/TIME: 1722-6735 (99390, 18029) Brenda Ramirez, PT, DPT [facility] All Active Problems (Updated 05/23/24 @ 16:21 by Kenya So APRN) Depression (Chronic) On deep vein thrombosis (DVT) prophylaxis (Acute) Sepsis (Acute) RLL pneumonia (Acute) Influenza A (Acute)
[2024-05-24] MEDS: AZITHROMYCIN 500 MG in Normal Saline 250 ML 250 MG IVPB (12:08)
[2024-05-24] MEDS: cefTRIAXone 1 GM/50 ML BAG IVPB (12:09)
--- NOTE | 2024-05-24 15:22 | PDOC.HHF2F ---
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 Symptoms started 4 days prior to presentation. On arrival to the ED the patient was hypoxic at 85% on room air which resolved status post oxygen supplementation of 2 L via nasal cannula. The patient is not O2 dependent at home. The patient was found to be tachycardic, tachypneic febrile and hypotensive. Workup in the ED was significant for the absence of leukocytosis, creatinine at 1.2 from baseline 0.8-1.1, upper respiratory viral panel was positive for influenza A. Chest x-ray showed right lung base infiltrate without pleural effusion. In the ED, IV fluid, ceftriaxone IV and azithromycin IV were initiated. The patient continued to require oxygen supplementation and was admitted to the hospitalist service to the medical surgical floor for evaluation and management of currently severe sepsis due to community acquired pneumonia in the setting of positive influenza A infection, hypoxic respiratory failure, increased creatinine. During the stay the patient continued to receive antibiotics, IV fluid hydration with improvement of the creatinine. The patient received continue to receive nebulizer treatments and oxygen was weaned down to room air for saturation 91- 93%; saturation improved to 95% when patient practicing Acapella and incentive parameter, taking deep breath and coughing. No treatment for influenza was given due to to symptomatology starting 4 days prior to diagnosis. The patient will be discharged home with home health physical therapy as per inpatient physical therapy recommendations. The patient will be discharged home with home health physical therapy to finish her course of antibiotic, probiotics as well as Mucinex and benzonatate. An attempt was made to reach out to the guardian name Margoth Bustillo; but record of a guardian name Brooks Carver at phone #[phone] listed on the person to notify in electronic chart; no response obtained during phone call/phone not in service. Call made to Nicolette Santiago as next of kin at [phone] extension [phone] which is [facility] human services number and voicemail left. Under the HIPAA form filled during this admission the guardian was not listed. At the time made to reach her guardian were unsuccessful. The patient will need follow-up with the primary care practitioner with follow- up on sleep study referral for PATSY; it seems that the last study was made in 2017. Physical Therapist: Check all that apply Increase strength & endurance for safe mobility at home: Ordered Home safety evaluation and teaching/gait training including stair management (if applicable): Ordered Better Breathing Program: Ordered Encounter Date and Reason: I certify that a FTF encounter for this patient was performed on May 24, 2024 and that such encounter was related to the primary reason the patient requires home health services. The encounter was conducted in the following manner: By me as the certifying physician, MACHINE BOBBIN WINDER, PA or By an inpatient physician, MACHINE BOBBIN WINDER or PA during an inpatient stay who communicated findings to me, Certification And Authentication I certify that I composed the above information based on my clinical judgment relating to this patient's medical condition and, if applicable, clinical findings communicated to me by the NPP or inpatient physician who performed the FTF encounter. Name of Provider that will be monitoring home health services: Ashley Denson
--- NOTE | 2024-05-24 16:12 | PDOC.CMDIS ---
Date of service: 05/24/24 Time of Service: 16:12 LACE Index Scoring Tool Questions: Length of Stay (in days): 2 Was the patient admitted via the E.D.?: Yes E.D. Visits: 1 Answers: Total Score: 6 Risk of Readmission: Low Risk Care Management Discharge Plan Reason for Hospitalization: RLL pneumonia Discharge Plan: Katty is discharged today with new orders for HH PT, and also with a referral to the sleep clinic. Katty will f/u with her PCP and continue per her plan of care. Katty will be transported home by her caregiver. Patient/Family Education Needs: Review of discharge instructions, activity, limitations, and ask me 3. Services Needed at Discharge: Home Health Care Services (PT) SDOH Health Related Social Needs: No Data to Display
[2024-05-25 16:47] LABS: Streptococcus Pneumoniae Ag, U Negative (Negative)
== END 2024-05-24 16:19 | disposition home health service (06) | DRG 195 ==
LOC: ER 13:25 → MS 14:10
PROVIDERS: Nurse Practitioner Family; Admitting Provider Hospitalist; Emergency Provider Emergency Medicine; PCP Family Medicine; Responsible Provider Nurse Practitioner Acute Care; Visit Provider Hospitalist
DX: J18.9 Pneumonia, unspecified organism; J10.00 Influenza due to other identified influenza virus with unspecified type of pneumonia; F32.A Depression, unspecified; Z79.899 Other long term (current) drug therapy; R41.89 Other symptoms and signs involving cognitive functions and awareness; G47.33 Obstructive sleep apnea (adult) (pediatric)
CPT/HCPCS: 00123; 36415; 80048; 80053; 84145; 87040; 87449; 87637; 96361; 96365; 96368; 96375; 97110; 97161; 99285; J1650; 71045; 83605; 83735; 83880; 84484; 85025; 87899; 94640; 94667; 94760; 99222; 99233; 99239; J0131; J0456; J0696; J7620

== ENCOUNTER 2024-12-04 04:21 | Outpatient (CLI) | payer MEDICARE, MEDICAID, SELFPAY ==
[2024-12-04 10:23] LABS: ALT 25 U/L (14-59); AST 14 U/L (15-37); Albumin 3.7 g/dL (3.4-5.0); Alkaline Phosphatase 86 U/L (46-116); Anion Gap 6.8 mmol/L (3-11); BUN 13 mg/dL (7-18); Bilirubin, Total 0.6 mg/dL (0.2-1.0); CO2 31.2 mmol/L (21.0-32.0); Calcium 9.1 mg/dL (8.5-10.1); Calculated LDL 63 mg/dL (<100); Chloride 106 mmol/L (98-107); Cholesterol 137 mg/dL (<200); Estimated GFR 59.86 (mL/min/1.73m2); Glucose 98 mg/dL (74-106); HDL Cholesterol 59 mg/dL (>or=50); Potassium 4.1 mmol/L (3.5-5.1); Sodium 144 mmol/L (136-145); TSH (W/Ref FT4) 1.36 uIU/mL (0.36-3.74); Total Protein 7.1 g/dL (6.4-8.2); Triglyceride 77 mg/dL (<150)
== END 2024-12-04 04:22 | disposition home or self-care (01) ==
LOC: LBO 04:21
PROVIDERS: PCP Family Medicine; Visit Provider Family Medicine
DX: E78.5 Hyperlipidemia, unspecified (principal); R41.3 Other amnesia
CPT/HCPCS: 36415; 80053; 80061; 84443